=== PATIENT | male | born 1960 | race Caucasian/White ===

== ENCOUNTER 2024-08-25 09:10 | Outpatient (REF) | payer OTHER, SELFPAY ==
--- OUTSIDE RECORDS SUMMARY | 2024-08-25 11:27 | XMS_ITS | Continuity of Care Document ---
[facility] Address [address] [place] [address]- Care Team Providers Care Field Administrative Assistant Name Role Phone Dewayne Bowie MD Primary Care Physician [id number] Date(s): 06/30/24 - [facility] [address] [address]- Encounter Type: Triage Allergies, Adverse Reactions, Alerts No Known Allergies Immunizations Given and Recorded Vaccine Date Status Refusal Reason [id number] 12y+ bivalent booster vax 07/28/22 Recorded SARS-CoV-2 (COVID-19) mRNA-1273 vaccine 12/21/21 R ecorded SARS-CoV-2 (COVID-19) mRNA-1273 vaccine 06/20/21 R ecorded SARS-CoV-2 (COVID-19) mRNA-1273 vaccine 11/15/20 R ecorded SARS-CoV-2 (COVID-19) mRNA-1273 vaccine 11/08/20 R ecorded SARS-CoV-2 (COVID-19) mRNA-1273 vaccine 10/19/20 R ecorded SARS-CoV-2 (COVID-19) mRNA-1273 vaccine 10/08/20 R ecorded influenza virus vaccine, inactivated 1 07/18/20 Gi alfredo Influenza Virus Vaccine (oldterm) 06/13/19 Recorde d Afluria (oldterm) 06/13/16 Given Adacel (Tdap) (oldterm) 06/13/16 Given tetanus/diphtheria/pertussis, acel(Tdap) 06/13/16 Recorded Rabies Vacc (oldterm) 2 03/06/08 Given Diphth-Tetanus Toxoids Adsorbed(oldterm) 03/06/08 Given 1Result Comment: [facility] [place] [id number] 2Admin Note: Rabies immune globulin 6 cc injected into wound, 3cc IM LB/RB Total RIG dose 12cc Problem List Condition Confirmation Course Effective Dates Status Health Status Informant Abnormal glucose Confirmed Active Chronic low back pain Confirmed Active Circadian rhythm sleep disorder, shift work type Confirmed Active Eustachian tube dysfunction Confirmed Active Tobacco use disorder, mild, in sustained remission Confirmed Active Difficulty with CPAP use Confirmed Active Hypercholesterolemia Confirmed Active Excessive sleepiness while driving Confirmed Active Low testosterone Confirmed Active Hypothyroidism Confirmed Active IFG (impaired fasting glucose) Confirmed Active ED (erectile dysfunction) Confirmed Active Cluneal neuropathy Confirmed Active Obesity Confirmed Active ROSE MARY on CPAP Confirmed Active Osteoarthritis of knee Confirmed Active RA (rheumatoid arthritis) Confirmed Active Severe obesity (BMI 35.0-39.9) with comorbidity Confirmed Active Rheumatoid nodule Confirmed Active Vitamin d deficiency Confirmed Active Social History Social History Type Response Tobacco Other: Stopped smoki ng cigaretes about 2 years ago, he currently smokes cigars. Sex Sex Representation Male (finding) Patient Care team information Care Team Personnel Name: Dewayne Bowie MD Position: [facility] Physician - Primary Care Member Role: PCP Address: [address] [place] [address]- Telecom: Care Team Related Persons Name: CARLOS MIRANDA Insurance Providers Guarantor name: CANDICE MIRANDA Health Plan Information #: 1 Payer: [facility] Member Number: NA Policy Number: NA Group Number: NA
[2024-08-25 17:48] LABS: MANUAL DIFF FLAG NO
[2024-08-25 17:55] LABS: Basophils Absolute Auto 0.1 X10*3/uL (0.0-0.2); Basophils Percent Auto 0.7 % (0-2); Eosinophils Absolute Auto 0.1 X10*3/uL (0.0-0.4); Eosinophils Percent Auto 1.5 % (0-4); Hematocrit 47.4 % (42.0-52.0); Hemoglobin 15.9 g/dl (14.0-18.0); Imm Gran Abs Auto 0.04 X10*3/uL (0.00-0.03); Imm Gran Pct Auto 0.5 % (0.0-0.4); Lymphocytes Absolute Auto 1.4 X10*3/uL (1.2-4.9); Lymphocytes Percent Auto 17.2 % (20-40); Mean Corpuscular HGB Conc 33.5 g/dl (31.0-36.0); Mean Corpuscular Hemoglobin 30.1 pg (27.0-33.0); Mean Corpuscular Volume 89.8 fL (80.0-98.0); Mean Platelet Volume 10.7 fL (9.4-12.4); Monocytes Absolute Auto 0.6 X10*3/uL (0.1-1.2); Monocytes Percent Auto 7.1 % (2-11); Platelet Count 264 X10*3/uL (160-400); Red Blood Count 5.28 X10*6/uL (4.60-5.80); Red Cell Distribution Width 12.5 % (11.0-16.0); White Blood Count 8.2 X10*3/uL (4.8-10.8)
[2024-08-25 18:02] LABS: Rheumatoid Factor 81.5 IU/mL (<15.0)
[2024-08-25 18:05] LABS: Alanine Aminotransferase 39 U/L (0-40); Aspartate Amino Transferase 29 U/L (5-37); C Reactive Protein 0.63 mg/dL (< or = 0.50); Estimated Glomerular Filt Rate > 60
[2024-08-25 18:57] LABS: Erythrocyte Sedimentation Rate 14 MM/HR (0-15)
[2024-08-26 04:43] LABS: HBS Num1 0.87 mIU/mL (0-7.99); HBc Num1 0.44 S/CO (0.00-0.79); HBsAGNum1 0.45 S/CO (0.00-0.99); Hepatitis B Core Antibody Nonreactive (Nonreactive); Hepatitis B Surface Antigen Negative (Negative); ~HepC Num1 2.03 S/CO (0.00-0.79); ~Hepatitis B Surface Antibody NONREACTIVE (Nonreactive); ~Hepatitis C Antibody Reactive (Nonreactive)
[2024-08-29 04:08] LABS: TS Negative Control Passed; TS Panel A 0; TS Panel B 0; TS Positive Control Passed; TSpotTB Negative (Negative)
[2024-08-30 13:58] LABS: Cyclic Citrullinated Peptide <16 UNITS
== END 2024-08-25 09:11 | disposition home or self-care (01) ==
LOC: HO.HKASLDS 09:10
PROVIDERS: Visit Provider Internal Medicine Rheumatology
DX: M06.09 Rheumatoid arthritis without rheumatoid factor, multiple sites (principal); Z79.60 Long term (current) use of unspecified immunomodulators and immunosuppressants; Z79.899 Other long term (current) drug therapy
CPT/HCPCS: 36415; 82565; 84450; 84460; 85025; 85652; 86140; 86200; 86431; 86481; 86704; 86706; 86803; 87340

== ENCOUNTER 2024-08-25 09:10 | Outpatient (AMB) | payer OTHER, SELFPAY ==
[2024-08-25 09:11] VITALS: BP 130/78; PULSE 68; O2SAT 97; BMI 41.1
--- NOTE | 2024-08-25 09:11 | A.OFFVIS_ITS ---
Vital Signs 08/25/24 09:11 Height 5 ft 6 in Weight 254 lb 8 oz BMI 41.1 BP 130/78 Blood Pressure Location Lt brachial Position Sitting Pulse 68 Pulse Source Pulse Oximeter Pulse Oximetry (%) 97 Oxygen Delivery Method Room Air Intake Visit Reasons: RA Intake Note: Patient presents follow up on Rheumatoid arthritis. Patient states he has an issue with diclofenac, insurance won't cover it anymore. Allergies No Known Allergies Allergy (Verified 08/25/24 09:15) HPI HPI RA: Details: Denies joint swelling. Last visit he had lower extremity edema. He has been wearing socks that he folds over to prevent pain from compression. Improvement by lower extremity edema still present. His main pain is coming from his lower back and knees. He continues to have right radicular symptoms. He has limited mobility. He has gone to physical therapy and does at least 30 minutes of exercises daily. In the past he has seen pain management for consideration of L-spine cortisone injection but has not pursued it due to risks involve and high co-pay of 100 dollars per procedure. At this time he is unable to afford multiple copays. He has history of L-spine surgery. He currently takes Celebrex 200 mg daily prescribed by PCP. He was using diclofenac gel on his knees with benefit. He has had to purchase it [id number] because he has no refills. [facility] Medical History (Updated 08/25/24 @ 09:54 by Ricky Garcia MD) Deviated septum Right shoulder injury Surgical History (Updated 08/25/24 @ 09:19 by Sabiha Guillermo CMA) H/O shoulder surgery History of back surgery H/O hernia repair Family History (Updated 08/25/24 @ 09:20 by Sabiha Guillermo CMA) Brother Colon cancer Social History (Updated 08/25/24 @ 09:20 by Sabiha Guillermo CMA) Alcohol intake: current Alcohol intake frequency: a few times a week Alcohol type: beer Patient Tobacco Use Status: Former Tobacco user Review of Systems Const All systems reviewed & are unremarkable except as noted in HPI and below Physical Exam Vital Signs: Last Vital Signs Pulse 68 08/25/24 09:11 BP 130/78 08/25/24 09:11 Pulse Ox 97 08/25/24 09:11 Oxygen Delivery Method Room Air 08/25/24 09:11 BMI result Body Mass Index 41.1 Const Other: General: Comfortable CVS: RRR Respiratory: clear to auscultation bilaterally. Good respiratory effort Skin: No lesions seen MSK: No tenderness of any joints. No synovitis. Good range of motion of upper extremities. Limited full external rotation of hips and flexion of knees 90 degrees. Assessment & Plan Assessment & Plan (1) Rheumatoid arthritis: Comment: History of rheumatoid arthritis diagnosed in . 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 He remains on remission on hydroxychloroquine restarted 09/2021 Code(s): M06.9 - Rheumatoid arthritis, unspecified Category: Medical Qualifiers: Rheumatoid arthritis location: multiple sites Rheumatoid factor presence: unspecified presence Qualified Code(s): M06.9 - Rheumatoid arthritis, unspecified Plan: Continue hydroxychloroquine 400 mg daily. Requesting eye exam for hydroxychloroquine surveillance said he had last year Labs for drug monitoring on high-risk medication due Return to clinic in 3 months I will be prescribing diclofenac gel 1% applied to knees q.i.d. as needed for pain relief I recommend that he follow-up with PCP for further management of chronic back pain with right radiculopathy and neuropathy in feet. Consider increasing frequency of Celebrex to 200 mg twice a day versus changing NSAID and considering Lyrica (previously tried gabapentin but patient reports it was in effective). Encouraged weight loss. I recommend that he follow up with PCP for consideration of medical management of weight loss. (2) Other terminal supervisor (current) drug therapy: Code(s): Z79.899 - Other terminal supervisor (current) drug therapy Category: Medical Plan: See above Orders: Orders Alanine Aminotransferase Today Z79.60 - rat exterminator (current) use of unspecified immunomodulators and immunosuppressants T Spot TB Today M06.9 - Rheumatoid arthritis, unspecified, Z79.899 - Other terminal supervisor (current) drug therapy Cyclic Citrullinated Peptide Today M06.9 - Rheumatoid arthritis, unspecified, Z79.899 - Other penitentiary (current) drug therapy Erythrocyte Sedimentation Rate Today M06.9 - Rheumatoid arthritis, unspecified, Z79.899 - Other terminal supervisor (current) drug therapy C Reactive Protein Today M06.9 - Rheumatoid arthritis, unspecified, Z79.899 - Other penitentiary (current) drug therapy Aspartate Amino Transferase Today Z79.60 - FDC (current) use of unspecified immunomodulators and immunosuppressants Complete Blood Count Auto Diff Today Z79.60 - FDC (current) use of unspecified immunomodulators and immunosuppressants Creatinine Today Z79.60 - rat exterminator (current) use of unspecified immunomodulators and immunosuppressants Hepatitis B,C Profile Today M06.9 - Rheumatoid arthritis, unspecified, Z79.899 - Other terminal supervisor (current) drug therapy Rheumatoid Factor Today M06.9 - Rheumatoid arthritis, unspecified, Z79.899 - Other terminal supervisor (current) drug therapy Medications: New diclofenac sodium 1% (Arthritis Pain (diclofenac)) apply to affected area every 4-6 hours as needed 4 grams topical QID 100 grams 11RF Coding Level of Care Code Est Pt Level 4 (59220) Complex EM visit Add On G2211 Diagnoses Rheumatoid arthritis involving multiple sites, unspecified whether rheumatoid factor present M06.9 Rheumatoid arthritis location: multiple sites Rheumatoid factor presence: unspecified presence Other terminal supervisor (current) drug therapy Z79.899
== END 2024-08-25 09:52 | disposition home or self-care (01) ==
PROVIDERS: Visit Provider Internal Medicine Rheumatology
DX: M06.9 Rheumatoid arthritis, unspecified (principal); Z79.899 Other long term (current) drug therapy
CPT/HCPCS: 99214

== ENCOUNTER 2024-09-14 11:08 | Outpatient (REF) | payer OTHER, SELFPAY ==
--- OUTSIDE RECORDS SUMMARY | 2024-09-14 12:30 | XMS_ITS | Clinical Summary ---
Author Organization [facility] lin Address [address] [place] [address] Care Team Providers Care Identification Clerk Name Role Phone Unavailable Primary Care Provider Unavailabl e Social History Tobacco Use Types Packs/Day Years Used Date Smoking Tobacco: Never Assessed Sex and Gender Information Value Date Recorded Sex Assigned at Not on file Legal Sex Male 10:04 AM EST Gender Identity Not on file Sexual Orientation Not on file Plan of Treatment Health Maintenance Due Date Last Done Comments Colorectal Cancer: COLONOSCO PY Screening every 10 yrs (or Modifier) 1962 Depression: Screening Annual ly using PHQ-2/9 in Adults 18 yrs or above (or HM Modifier)([facility]) 1980 Hepatitis C Virus Infection in Adolescents and Adults: Screening (or Modifier) ([facility]) 1980 SDOH Screening Reminder: Annually for all adults ([facility]) 1980 Tobacco Smoking Cessation: i n Adults excluding Women: Behavioral and Pharmacotherapy Interventions ([facility]) 1980 Lipid Screening: Every 5 yrs for Men aged 35+ (or HM Modifier) ([facility]) 1998 Colorectal Cancer Screening 45 -75 Yrs (or HM Modifier) 2007 Colorectal Cancer: FLEXIBLE SIGMOIDOSCOPY Screening every 5 yrs 2007 Colorectal Cancer: Fecal Immunochemical Test (FIT) Annually [facility] 2007 Colorectal Cancer: High-sensitivity gFOBT Screening Annually [facility] 2007 Colorectal Cancer: Stool Cologuard Screening every 3 yrs 2007 Colorectal Cancer:CT Colonography Screening every 5 yrs 2007 Zoster/Shingles Vaccine Seri es Screening: Adults aged 18+ yrs (or HM Modifiers)([facility]) (1 of 2) 2012 Flu Vaccination: Yearly for ages 18mos through 64 years (or Modifier)([facility]) 03/10/2024 COVID-19 Vaccine Screening: Initial Series and Booster Status ([facility]) (1 - 2023-25 season) 2024 DTaP/Tdap/Td Vaccines ([facility]) (2 - Td or Tdap) 06/13/2026 06/13/2016, 03/06/2008 RSV Vaccines (1 - 1-dose 75+ series) 2037 Pneumococcal Vaccination Screening: Pts 0-19 & 19-64 yrs of age ([facility]) Aged Out No longer eligible based on patient's age to complete this topic Medical Devices Not on file Insurance [facility]
--- OUTSIDE RECORDS SUMMARY | 2024-09-14 12:30 | XMS_ITS | Clinical Summary ---
Author Organization [facility] Address [address] [place] [address] Care Team Providers Care Supervisor Mail Carriers Name Role Phone Unavailable Primary Care Provider Unavailabl e Social History Tobacco Use Types Packs/Day Years Used Date Smoking Tobacco: Never Assessed Sex and Gender Information Value Date Recorded Sex Assigned at Not on file Legal Sex Male 6:38 PM EDT Gender Identity Not on file Sexual Orientation Not on file Plan of Treatment Health Maintenance Due Date Last Done Comments Hepatitis C Screening 1962 DTaP/Tdap/Td (1 - Tdap) 1980 Pneumococcal 50+ years (1 of 1 - PCV) 2012 Zoster (Shingrix) (1 of 2) 2012 COVID-19 Vaccine ( - 2023-2 5 season) 2024 Influenza (#1) 2024 RSV (1 - 1-dose 75+ series) 2037 HPV Vaccine Aged Out No longer eligi ble based on patient's age to complete this topic Hep A Aged Out No longer eligi ble based on patient's age to complete this topic Hep B Aged Out No longer eligi ble based on patient's age to complete this topic Hib Aged Out No longer eligi ble based on patient's age to complete this topic Meningococcal ACWY Aged Out No longer eligible based on patient's age to complete this topic Zoster (Zostavax) Discontinued
--- OUTSIDE RECORDS SUMMARY | 2024-09-14 12:30 | XMS_ITS | Continuity of Care Document ---
Author Organization [facility] Address [address] [place] [address]- Care Team Providers Care Couples Therapist Name Role Phone Dewayne Bowie MD Primary Care Physician Encounter [facility] NBR [id number] Date(s): 08/30/24 - 08/30/[address] [address] Discharge Disposition: A-D/C Home Attending Physician: Geena Dangelo DO Admitting Physician: Geena Dangelo DO Referring Physician: Geena Dangelo DO Encounter Type: Disch [facility] Allergies, Adverse Reactions, Alerts No Known Allergies Immunizations Given and Recorded Vaccine Date Status Refusal Reason [id number] 12y+ bivalent booster vax 07/28/22 Recorded SARS-CoV-2 [...] Diphth-Tetanus Toxoids Adsorbed(oldterm) 03/06/08 Given 1Result Comment: [facility] [place] [id number] 2Admin Note: Rabies immune globulin 6 [...] Confirmed Active Vitamin d deficiency Confirmed Active Vital Signs Most recent to oldest [Reference Range]: 1 2 3 Height 168 cm (08/30/24 8:32 AM) Oxygen Saturation [94-100 %] 95 % (08/30/24 10:04 AM) 95 % (08/30/24 10:02 AM) 94 % (08/30/24 9:51 AM) Pulse Rate [55-90 bpm] 71 bpm (08/30/24 8:32 AM) Blood Pressure [90-138/55-84 mm Hg] 106/59mm Hg (08/30/24 10:02 AM) 97/58mm Hg (08/30/24 9:51 AM) 95/69mm Hg (08/30/24 9:45 AM) Respiratory Rate [16-30 br/min] 11 br/min *L* (08/30/24 10:04 AM) 18 br/min (08/30/24 10:02 AM) 20 br/min (08/30/24 9:51 AM) Temperature [96.8-100.4 DegF] 98.6 DegF (08/30/24 8:32 AM) Mode of Delivery (Oxygen) Room air (08/30/24 9:45 AM) Room air (08/30/24 8:32 AM) Blood pressure sites Arm, left (08/30/24 9:45 AM) Arm, left (08/30/24 8:32 AM) Temperature Route Temporal (08/30/24 8:32 AM) Dry Weight 114.3 kg (08/30/24 8:32 AM) Dry Weight Obtained Via Standing scale (08/30/24 8:32 AM) Social History Social History Type Response Tobacco Other: Stopped smoki ng cigaretes about 2 years ago, he currently smokes cigars. Sex Sex Representation Male (finding) Patient Care team information Care Team Personnel Name: Dewayne Bowie MD Position: [facility] Physician - Primary Care Member Role: PCP Address: [address] [place] [address] Telecom: Care Team Related Persons Name: CARLOS MIRANDA Insurance Providers Guarantor name: CANDICE MIRANDA Health Plan Information #: 1 Payer: [facility] Member Number: [id number] Policy Number: NA Group Number: [id number] Health Plan Information #: 2 Payer: [facility] Member Number: [id number] Policy Number: NA Group Number: NA
[2024-09-16 20:53] LABS: HCV Log PCR <1.18 NOT DETECTED Log IU/mL (NOT DETECTED); HepC Viral Load <15 NOT DETECTED IU/mL (NOT DETECTED)
== END 2024-09-14 11:09 | disposition home or self-care (01) ==
LOC: HO.HKASLDS 11:08
PROVIDERS: Visit Provider Internal Medicine Rheumatology
DX: M06.9 Rheumatoid arthritis, unspecified (principal); Z79.899 Other long term (current) drug therapy
CPT/HCPCS: 36415; 87522

== ENCOUNTER 2024-12-07 10:52 | Outpatient (AMB) | payer OTHER, SELFPAY ==
[2024-12-07 10:47] VITALS: BP 100/90; PULSE 90; O2SAT 96; BMI 40.5
--- NOTE | 2024-12-07 10:47 | A.OFFVIS_ITS ---
Vital Signs 12/07/24 10:47 Height 5 ft 6 in Weight 250 lb 14.177 oz BMI 40.5 BP 100/90 H Blood Pressure Location Rt brachial Position Sitting Pulse 90 Pulse Source Pulse Oximeter Pulse Oximetry (%) 96 Oxygen Delivery Method Room Air Intake Visit Reasons: Follow up 3mo Intake Note: Patient presents follow up on Rheumatoid arthritis. Cardiologist Required: No Accompanied by: Self / Same As Patient Allergies No Known Allergies Allergy (Verified 12/07/24 10:47) HPI HPI Follow up 3mo: Details: He is having knee pain with activity. He is not able to walk long distances. He is requesting placard to park closer to stores. He is using Celebrex a few times a week. He does not like to take medications. He is using diclofenac gel prescribed and OTC because he does not have enough from the prescription a few times a day without benefit. No morning stiffness. No joint swelling. [facility] Medical History Deviated septum Right shoulder injury Surgical History H/O shoulder surgery History of back surgery H/O hernia repair Family History Brother Colon cancer Social History Alcohol intake: current Alcohol intake frequency: a few times a week Alcohol type: beer Patient Tobacco Use Status: Former Tobacco user Review of Systems Const All systems reviewed & are unremarkable except as noted in HPI and below Physical Exam Vital Signs: Last Vital Signs Pulse 90 12/07/24 10:47 BP 100/90 H 12/07/24 10:47 Pulse Ox 96 12/07/24 10:47 Oxygen Delivery Method Room Air 12/07/24 10:47 BMI result Body Mass Index 40.5 Const Other: General: Comfortable CVS: RRR Respiratory: clear to auscultation bilaterally. Good respiratory effort Skin: No lesions seen MSK: No tenderness of any joints. No synovitis. Good range of motion of upper extremities. Limited full external rotation of hips and flexion of knees 90 degrees. Assessment & Plan Assessment & Plan (1) Rheumatoid arthritis: Comment: In remission on hydroxychloroquine. Previous lab from August reveal positive hepatitis-C antibody with negative viral load indicating past hepatitis-C infection. Discussed with patient. I answered his questions to his satisfaction. Rheumatology history: History of rheumatoid arthritis diagnosed in . Treated initially with hydroxychloroquine and Enbrel until 2019 when exhibit specialist left the practice. He remains on remission on hydroxychloroquine restarted 09/2021 Code(s): M06.9 - Rheumatoid arthritis, unspecified Category: Medical Qualifiers: Rheumatoid arthritis location: multiple sites Rheumatoid factor presence: unspecified presence Qualified Code(s): M06.9 - Rheumatoid arthritis, unspecified Plan: Continue hydroxychloroquine 400 mg daily. Requesting eye exam for hydroxychloroquine surveillance this year Labs for drug monitoring on high-risk medication due Return to clinic in 3 months (2) Other joint terminal attack controller (current) drug therapy: Code(s): Z79.899 - Other fci (current) drug therapy Category: Medical Plan: See above (3) Osteoarthritis of right knee: Comment: Uncontrolled pain with current regimen. Code(s): M17.11 - Unilateral primary osteoarthritis, right knee Category: Medical Plan: I recommend that he take Celebrex 200 mg daily. He does not like to take pills. X-ray right knee ordered [facility]ing [facility] He will be scheduled for right knee cortisone injection next week Orders: Orders Aspartate Amino Transferase Today Z79.60 - long-term (current) use of unspecified immunomodulators and immunosuppressants Creatinine Today Z79.60 - termite exterminator helper (current) use of unspecified immunomodulators and immunosuppressants Erythrocyte Sedimentation Rate Today Z79.899 - Other fci (current) drug therapy C Reactive Protein Today Z79.899 - Other joint terminal attack controller (current) drug therapy XR knee RT 2V Today M17.0 - Bilateral primary osteoarthritis of knee Alanine Aminotransferase Today Z79.60 - long-term (current) use of unspecified immunomodulators and immunosuppressants Complete Blood Count Auto Diff Today Z79.60 - termite exterminator helper (current) use of unspecified immunomodulators and immunosuppressants Medications: New celecoxib (Celebrex) 200 mg PO DAILY 30 caps 2RF Changed From hydroxychloroquine 400 mg PO DAILY To hydroxychloroquine Replace previous rx 400 mg (2 x 200 mg) PO DAILY 60 tabs 2RF Refilled diclofenac sodium 1% (Arthritis Pain (diclofenac)) apply to affected area every 4-6 hours as needed 4 grams topical QID 300 grams 11RF Coding Level of Care Code Est Pt Level 4 (73064) Complex EM visit Add On G2211 Diagnoses Rheumatoid arthritis involving multiple sites, unspecified whether rheumatoid factor present M06.9 Rheumatoid arthritis location: multiple sites Rheumatoid factor presence: unspecified presence Other joint terminal attack controller (current) drug therapy Z79.899 Osteoarthritis of right knee M17.11
--- OUTSIDE RECORDS SUMMARY | 2024-12-07 12:18 | XMS_ITS | Clinical Summary ---
Author Organization [facility] [employer] [facility] lin Address [address] [place] [address] Care Team Providers Care Hollow Ware Maker Name Role Phone Unavailable Primary Care Provider [...] 18 yrs or above (or HM Modifier)([facility]) 1980 Hepatitis C Virus Infection in Adolescents and Adults: Screening (or Modifier) ([facility]) 1980 SDOH Screening Reminder: Brianna gooden for all adults ([facility]) 1980 Tobacco Smoking Cessation: i n Adults excluding Women: Behavioral and Pharmacotherapy Interventions ([facility]) 1980 Lipid Screening: Every 5 yrs for Men aged 35+ (or HM Modifier) ([facility]) 1998 Colorectal Cancer Screening 45 -75 Yrs (or HM Modifier) 2007 Colorectal Cancer: FLEXIBLE SIGMOIDOSCOPY Screening every 5 yrs 2007 Colorectal Cancer: Fecal Imm unochemical Test (FIT) Annually [facility] 2007 Colorectal Cancer: High-sens itivity gFOBT Screening Annually [facility] 2007 Colorectal Cancer: Stool Col oguard Screening every 3 yrs 2007 Colorectal Cancer:CT Colonog rosemary Screening every 5 yrs 2007 Pneumococcal Vaccination Scr eening: Patients 50+ yrs of age ([facility]) (1 of 1 - PCV) 2012 Zoster/Shingles Vaccine Seri es Screening: Adults aged 18+ yrs (or HM Modifiers)([facility]) (1 of 2) 2012 COVID-19 Vaccine Screening: Initial Series and Booster Status ([facility]) ( - 2023-25 season) 2024 Flu Vaccination: Yearly for ages 18mos through 64 years (or Modifier)([facility] ) 03/10/2025 DTaP/Tdap/Td Vaccines ([facility]) (2 - Td or Tdap) 06/13/2026 06/13/2016, 03/06/2008 RSV Vaccines (1 - 1-dose 75+ series) 2037 Medical Devices Not on file Insurance [facility]
--- OUTSIDE RECORDS SUMMARY | 2024-12-07 12:18 | XMS_ITS | Clinical Summary ---
Author Organization [facility] Address [address] [place] [address] Care Team Providers Care Foot Orthopedist Name Role Phone Unavailable Primary Care Provider [...]
== END 2024-12-07 11:35 | disposition home or self-care (01) ==
LOC: HO.RHES 10:53
PROVIDERS: PCP Internal Medicine Rheumatology; Visit Provider Internal Medicine Rheumatology
DX: M06.9 Rheumatoid arthritis, unspecified (principal); Z79.899 Other long term (current) drug therapy; M17.11 Unilateral primary osteoarthritis, right knee
CPT/HCPCS: 99214

== ENCOUNTER 2024-12-07 10:52 | Outpatient (REF) | payer OTHER, SELFPAY ==
--- OUTSIDE RECORDS SUMMARY | 2024-12-07 13:13 | XMS_ITS | Clinical Summary ---
Author Organization [facility] Address [address] [place] [address] Care Team Providers Care Rn Security Name Role Phone Unavailable Primary Care Provider [...]
--- OUTSIDE RECORDS SUMMARY | 2024-12-07 13:13 | XMS_ITS | Clinical Summary ---
Author Organization [facility] lin Address [address] [place] [address] Care Team Providers Care Oracle Financials Developer Name Role Phone Unavailable Primary Care Provider [...] Adults 18 yrs or above (or HM Modifier)([facility]) 1980 Hepatitis C Virus Infection in Adolescents and Adults: Screening (or Modifier) ([facility]) 1980 SDOH Screening Reminder: Brianna gooden for all adults ([facility]) 1980 Tobacco Smoking Cessation: i n Adults excluding Women: Behavioral and Pharmacotherapy Interventions ([facility]) 1980 Lipid Screening: Every 5 yrs for Men aged 35+ (or HM Modifier) ([facility]) 1998 Colorectal Cancer Screening 45 -75 Yrs (or HM Modifier) 2007 Colorectal Cancer: FLEXIBLE SIGMOIDOSCOPY Screening every 5 yrs 2007 Colorectal Cancer: Fecal Imm unochemical Test (FIT) Annually [facility] 2007 Colorectal Cancer: High-sens itivity gFOBT Screening Annually [facility] 2007 Colorectal Cancer: Stool Col oguard Screening every 3 yrs 2007 Colorectal Cancer:CT Colonog rosemary Screening every 5 yrs 2007 Pneumococcal Vaccination Scr eening: Patients 50+ yrs of age ([facility]) (1 of 1 - PCV) 2012 Zoster/Shingles Vaccine Seri es Screening: Adults aged 18+ yrs (or HM Modifiers)([facility]) (1 of 2) 2012 COVID-19 Vaccine Screening: Initial Series and Booster Status ([facility]) ( - 2023-25 season) 2024 Flu Vaccination: Yearly for ages 18mos through 64 years (or Modifier)([facility] ) 03/10/2025 DTaP/Tdap/Td Vaccines ([facility]) (2 - Td or Tdap) 06/13/2026 06/13/2016, 03/06/2008 RSV Vaccines (1 - 1-dose 75+ series) 2037 Medical Devices Not on file Insurance [facility]
[2024-12-07 18:01] LABS: MANUAL DIFF FLAG NO
[2024-12-07 18:13] LABS: Basophils Percent Auto 0.5 % (0-2); Eosinophils Absolute Auto 0.1 X10*3/uL (0.0-0.4); Eosinophils Percent Auto 1.3 % (0-4); Hematocrit 46.3 % (42.0-52.0); Hemoglobin 15.6 g/dl (14.0-18.0); Imm Gran Abs Auto 0.05 X10*3/uL (0.00-0.03); Imm Gran Pct Auto 0.6 % (0.0-0.4); Lymphocytes Absolute Auto 1.5 X10*3/uL (1.2-4.9); Lymphocytes Percent Auto 16.9 % (20-40); Mean Corpuscular HGB Conc 33.7 g/dl (31.0-36.0); Mean Corpuscular Hemoglobin 30.4 pg (27.0-33.0); Mean Corpuscular Volume 90.1 fL (80.0-98.0); Mean Platelet Volume 10.3 fL (9.4-12.4); Monocytes Absolute Auto 0.7 X10*3/uL (0.1-1.2); Monocytes Percent Auto 7.9 % (2-11); Neutrophils Absolute Auto 6.3 x10*3/uL (2.0-8.3); Neutrophils Percent Auto 72.8 % (45-73); Platelet Count 261 X10*3/uL (160-400); Red Blood Count 5.14 X10*6/uL (4.60-5.80); Red Cell Distribution Width 12.9 % (11.0-16.0); White Blood Count 8.6 X10*3/uL (4.8-10.8)
[2024-12-07 18:25] LABS: Alanine Aminotransferase 52 U/L (0-40); Aspartate Amino Transferase 35 U/L (5-37); C Reactive Protein 0.54 mg/dL (< or = 0.50); Estimated Glomerular Filt Rate > 60
[2024-12-07 18:53] LABS: Erythrocyte Sedimentation Rate 11 MM/HR (0-15)
== END 2024-12-07 10:53 | disposition home or self-care (01) ==
LOC: HO.HKASLDS 10:52
PROVIDERS: PCP Internal Medicine Rheumatology; Visit Provider Internal Medicine Rheumatology
DX: Z79.899 Other long term (current) drug therapy (principal); Z79.60 Long term (current) use of unspecified immunomodulators and immunosuppressants
CPT/HCPCS: 36415; 82565; 84450; 84460; 85025; 85652; 86140

== ENCOUNTER 2024-12-08 11:29 | Outpatient (REF) | payer OTHER, SELFPAY ==
--- NOTE | ~2024-12-08 | XR_ITS ---
EXAMINATION: XR KNEE, RIGHT CLINICAL INFORMATION: M17.0 - Bilateral primary osteoarthritis of knee COMPARISON: None available. TECHNIQUE: Two views of the right knee. FINDINGS: No fracture, dislocation, or suspicious bone lesion. Tricompartmental osteoarthritis, most significant medial compartment, with moderate joint space narrowing, mild subchondral sclerosis and marginal osteophytic spurs. There is mild spurring of the tibial spines. There is a low-lying patella noted. No significant joint effusion present. No soft tissue abnormality. XR/XR knee RT 2V IMPRESSION: 1. No acute bony abnormality. 2. Tricompartmental osteoarthrosis, moderate in the medial compartment. 3. No joint effusion. Electronically signed by: Homero Barker MD 12/09/2024 10:06 AM EDT
== END 2024-12-08 11:30 | disposition home or self-care (01) ==
LOC: HO.HMGCX 11:29
PROVIDERS: Visit Provider Internal Medicine Rheumatology
DX: M17.0 Bilateral primary osteoarthritis of knee (principal)
CPT/HCPCS: 73560

== ENCOUNTER → 2024-12-08 11:32 | Outpatient (BNV) | payer OTHER, SELFPAY | PROVIDERS: Visit Provider Radiology Diagnostic Radiology | DX: M17.0 Bilateral primary osteoarthritis of knee (principal) | CPT/HCPCS: 73560 ==

== ENCOUNTER 2024-12-13 11:53 | Outpatient (AMB) | payer OTHER, SELFPAY ==
--- NOTE | 2024-12-13 11:56 | MHC.OFFVIS ---
Vital Signs 12/13/24 11:58 Height 5 ft 6 in Weight 252 lb 13.923 oz BMI 40.8 BP 110/90 H Blood Pressure Location Lt brachial Position Sitting Pulse 73 Pulse Oximetry (%) 97 Oxygen Delivery Method Room Air Intake Visit Reasons: Right knee injection/ Per mD Intake Note: PT PRESENTS TODAY FOR A RIGHT KNEE INJECTION Allergies No Known Allergies Allergy (Verified 12/07/24 10:47) HPI HPI Right knee injection/ Per mD: Details: He continues to have right knee pain. No new symptoms. [facility] Medical History Deviated septum Right shoulder injury Surgical History H/O shoulder surgery History of back surgery H/O hernia repair Family History Brother Colon cancer Social History Alcohol intake: current Alcohol intake frequency: a few times a week Alcohol type: beer Patient Tobacco Use Status: Former Tobacco user Review of Systems Const All systems reviewed & are unremarkable except as noted in HPI and below Physical Exam Vital Signs: Last Vital Signs Pulse 73 12/13/24 11:58 BP 110/90 H 12/13/24 11:58 Pulse Ox 97 12/13/24 11:58 Oxygen Delivery Method Room Air 12/13/24 11:58 BMI result Body Mass Index 40.8 Const Other: General: Comfortable Skin: No lesions seen MSK: Right knee joint line tenderness on palpation. No effusion. Office Procedures AMB Joint Injection/Aspiration Joint Injection/Aspiration Details: Right knee joint Prep: site was prepped using aseptic technique Injected: 40 mg of, Kenalog, with 1 mL of and 1% plain lidocaine Procedure: The patient tolerated the procedure well. Postprocedure protocol was discussed with patient. Coding 49012 - Large joint Procedure code (CPT) selection complete Office Meds lidocaine (PF) 10 mg/mL (1 %) injection solution Performing Provider: Ricky Garcia MD [place] [facility] Administered by: Ricky Garcia MD on 12/13/24 12:28 Dose Route Admin Location Dispensed Lot Number Expiration Date [facility] Apartment Maintenance 10 mg Infiltration 2 mL [id number] [employer] Kenalog 40 mg/mL suspension for injection Performing Provider: Ricky Garcia MD Performing [place] [facility] [place] Administered by: Ricky Garcia MD on 12/13/24 12:28 Dose Route Admin Location Dispensed Lot Number Expiration Date [facility] Apartment Maintenance 40 mg intra-articular 1 mL [place] [id number] MARCO A RICHARDSON PHAR Assessment & Plan Assessment & Plan (1) Osteoarthritis of right knee: Comment: Uncontrolled pain with current regimen. X-ray right knee reveals moderate osteoarthritis. Code(s): M17.11 - Unilateral primary osteoarthritis, right knee Category: Medical Qualifiers: Osteoarthritis type: primary Qualified Code(s): M17.11 - Unilateral primary osteoarthritis, right knee Plan: Patient received right knee cortisone injection Return to clinic in 3 months (2) Transaminitis: Comment: He drinks occasional alcohol Code(s): R74.01 - Elevation of levels of liver transaminase levels Category: Medical Plan: Avoid alcohol Liver panel ordered for him to check in 1 month Return to clinic in 3 months Orders: Orders AMB Joint Injection/Aspiration Today M17.11 - Unilateral primary osteoarthritis, right knee Medications: New lidocaine (PF) 10 mg Infiltration ONCE 1 mL 0RF M17.11 - Unilateral primary osteoarthritis, right knee Kenalog (triamcinolone acetonide) 40 mg intra-articular ONCE 1 mL 0RF NS M17.11 - Unilateral primary osteoarthritis, right knee Coding Level of Care Code Est Pt Level 3 (45910) Complex EM visit Add On G2211 Diagnoses Primary osteoarthritis of right knee M17.11 Osteoarthritis type: primary Transaminitis R74.01 CPT Codes Coding - 31210 Large joint: 21365 - Large joint ([id number])
[2024-12-13 11:58] VITALS: BP 110/90; PULSE 73; O2SAT 97; BMI 40.8
--- OUTSIDE RECORDS SUMMARY | 2024-12-13 13:29 | XMS_ITS | Encounter Summary ---
Author Organization [facility] Address [address] [place] [address] Care Team Providers Care Abattoir Supervisor Name Role Phone Refugio Mosquera Primary Care Provider Kiannaa Klaudia Salazar MD Primary Care Provider Un available Encounter Details Date Type Department Care Team Description 11/30/2007 [facility] Medical Records [address] [place] [address] Abstract, Provider Social History Tobacco Use Types Packs/Day Years Used Date Smoking Tobacco: Every Day Cigars Smokeless Tobacco: Never Alcohol Use Standard Drinks/Week Comments Yes 0 (1 standard drink = 0.6 oz pur e alcohol) Sex Assigned at Date Recorded Not on file documented as of this encounter Plan of Treatment Not on file documented as of this encounter Visit Diagnoses Not on filedocumented in this encounter Care Teams Abattoir Supervisor Relationship Specialty Start Date End Date Refugio Mosquera PCP - General Internal Medicine 11/14/16 04/27/17 Klaudia Mederos MD PCP - General Internal Medicine 04/28/17 documented as of this encounter
--- OUTSIDE RECORDS SUMMARY | 2024-12-13 13:29 | XMS_ITS | Encounter Summary ---
Author Organization [facility] Address [address] [place] [address] Care Team Providers Care Financial Advocate Name Role Phone Klaudia Mederos MD Primary Care Provider Un available Encounter Details Date Type Department Care Team Description 09/17/2018 Receiving Checker Report Medical Records [address] [place] [address] Franklin Robin [address] [place] [address] Social History Tobacco Use Types Packs/Day Years Used Date Smoking Tobacco: Every Day Cigarettes 30 Smokeless Tobacco: Never Comments:approx 15 cigarette s daily Alcohol Use Standard Drinks/Week Comments Yes 0 (1 standard drink = 0.6 oz pur e alcohol) Sex Assigned at Date Recorded Not on file documented as of this encounter Plan of Treatment Not on file documented as of this encounter Visit Diagnoses Not on filedocumented in this encounter Care Teams Financial Advocate Relationship Specialty Start Date End Date Klaudia Mederos MD PCP - General Internal Medicine 04/28/17 documented as of this encounter
--- OUTSIDE RECORDS SUMMARY | 2024-12-13 13:29 | XMS_ITS | Encounter Summary ---
Author Organization [facility] Address [address] [place] [address] Care Team Providers Care Canvas Baster Name Role Phone Klaudia Mederos MD Primary Care Provider Un available Encounter Details Date Type Department Care Team Description 02/02/2019 Soft Work Wrapper Layer And Examiner Report Medical Records [address] [place] [address] Robin Reid [address] [place] [address] Social History Tobacco Use Types Packs/Day Years [...] on filedocumented in this encounter Care Teams Canvas Baster Relationship Specialty Start Date End Date Klaudia Mederos MD PCP - General Internal Medicine 04/28/17 documented as of this encounter
--- OUTSIDE RECORDS SUMMARY | 2024-12-13 13:29 | XMS_ITS | Encounter Summary ---
Author Organization [facility] Address [address] [place] [address] Care Team Providers Care Sewing Demonstrator Name Role Phone Refugio Mosquera Primary Care Provider Kiannaa Klaudia Salazar MD Primary Care Provider Un available Encounter Details Date Type Department Care Team Description 04/14/2017 Release of Information Medical Records [address] [place] [address] Abstract, Provider Social History Tobacco Use Types Packs/Day Years Used Date Smoking Tobacco: Every Day Cigarettes 0.5 30 Comments:14 cigs daily Alcohol Use Standard Drinks/Week Comments Yes 0 (1 standard drink = 0.6 oz pur e alcohol) Sex Assigned at Date Recorded Not on file documented as of this encounter Plan of Treatment Not on file documented as of this encounter Visit Diagnoses Not on filedocumented in this encounter Care Teams Sewing Demonstrator Relationship Specialty Start Date End Date Refugio Mosquera PCP - General Internal Medicine 11/14/16 04/27/17 Klaudia Mederos MD PCP - General Internal Medicine 04/28/17 documented as of this encounter
--- OUTSIDE RECORDS SUMMARY | 2024-12-13 13:29 | XMS_ITS | Encounter Summary ---
Author Organization [facility] Address [address] [place] [address] Care Team Providers Care Construction Plumber Name Role Phone Klaudia Mederos MD Primary Care Provider Un available Encounter Details Date Type Department Care Team Description 07/20/2017 Orders Only Adult Medicine [address] [address] Klaudia Mederos MD Preoperative examination; Screening for deficiency anemia Social History Tobacco Use Types Packs/Day Years Used Date Smoking Tobacco: Every Day Cigarettes 1 30 Smokeless Tobacco: Never Alcohol Use Standard Drinks/Week Comments Yes 0 (1 standard drink = 0.6 oz pur e alcohol) Sex Assigned at Date Recorded Not on file documented as of this encounter Plan of Treatment Not on file documented as of this encounter Visit Diagnoses Diagnosis Preoperative examination Preoperative examination, unspecified Screening for deficiency anemia Screening for other and unspecified deficiency anemia documented in this encounter Care Teams Construction Plumber Relationship Specialty Start Date End Date Klaudia Mederos MD PCP - General Internal Medicine 04/28/17 documented as of this encounter
--- OUTSIDE RECORDS SUMMARY | 2024-12-13 13:29 | XMS_ITS | Clinical Summary ---
Author Organization [facility] Address [address] [place] [address] Care Team Providers Care Family Physician Name Role Phone Unavailable Primary Care Provider [...] ( - 2023-2 5 season) 2024 Influenza (Season Ended) 2025 RSV (1 - 1-dose 75+ series) 2037 [...]
--- OUTSIDE RECORDS SUMMARY | 2024-12-13 13:29 | XMS_ITS | Clinical Summary ---
Author Organization [facility] Address [address] [place] [address] Care Team Providers Care Mail Clerk Name Role Phone Unavailable Primary Care [...] Adults 18 yrs or above (or HM Modifier)([facility]) 1980 Hepatitis C Virus Infection in Adolescents and Adults: Screening (or Modifier) ([facility]) 1980 SDOH Screening Reminder: Brianna gooden for all adults ([facility]) 1980 Tobacco Smoking Cessation: i n Adults excluding Women: Behavioral and Pharmacotherapy Interventions ([facility]) 1980 Lipid Screening: Every 5 yrs for Men aged 35+ (or HM Modifier) ([facility]) 1998 Colorectal Cancer Screening 45 -75 Yrs (or HM Modifier) 2007 Colorectal Cancer: FLEXIBLE SIGMOIDOSCOPY Screening every 5 yrs 2007 Colorectal Cancer: Fecal Imm unochemical Test (FIT) Annually [facility] 2007 Colorectal Cancer: High-sens itivity gFOBT Screening Annually [facility] 2007 Colorectal Cancer: Stool Col oguard Screening every 3 yrs 2007 Colorectal Cancer:CT Colonog rosemary Screening every 5 yrs 2007 Pneumococcal Vaccination Scr eening: Patients 50+ yrs of age ([facility]) (1 of 1 - PCV) 2012 Zoster/Shingles Vaccine Seri es Screening: Adults aged 18+ yrs (or HM Modifiers)([facility]) (1 of 2) 2012 COVID-19 Vaccine Screening: Initial Series and Booster Status ([facility]) ( - 2023-25 season) 2024 Flu Vaccination: Yearly for ages 18mos through 64 years (or Modifier)([facility] ) 03/10/2025 DTaP/Tdap/Td Vaccines ([facility]) (2 - Td or Tdap) 06/13/2026 06/13/2016, 03/06/2008 RSV Vaccines (1 - 1-dose 75+ series) 2037 Medical Devices Not on file Insurance [facility]
--- OUTSIDE RECORDS SUMMARY | 2024-12-13 13:29 | XMS_ITS | Encounter Summary ---
Author Organization [facility] Address [address] [place] [address] Care Team Providers Care Rayon Tester Name Role Phone Klaudia Mederos MD Primary Care Provider Un available Reason for Visit * Reason Onset Date Comments Medication 03/09/2018 Plaquenil Encounter Details Date Type Department Care Team Description 03/09/2018 Telephone Rheumatology - [address] [address] Bina Batista DO Medication (Plaquenil) Social History Tobacco Use Types Packs/Day Years Used Date Smoking Tobacco: Former Cigarettes 1 30 Smokeless Tobacco: Never Alcohol Use Standard Drinks/Week Comments Yes 0 (1 standard drink = 0.6 oz pur e alcohol) Sex Assigned at Date Recorded Not on file documented as of this encounter Miscellaneous Notes * Telephone Encounter - Bina Batista DO - 03/11/2018 8:13 PM EDT Ok. Sounds good. * Telephone Encounter - Vanessa Moncada M.A. - 03/11/2018 4:08 PM EDT I spoke with the pt. Pt's legs feel good. He would like to try taking the Plaquenil 100 mg on Mon, Wed, and Fri. * Telephone Encounter - Bina Batista DO - 03/09/2018 3:49 PM EDT How is he ([phone] (home) [phone] (work)) feeling on the lower dose of [id number] mg? Any changes with pain in the legs? If he feels ok, we can change it to half tabs on M, W, and F. Or if he wants to try stopping it, we can try that also. documented in this encounter Plan of Treatment Not on file documented as of this encounter Visit Diagnoses Not on filedocumented in this encounter Care Teams Rayon Tester Relationship Specialty Start Date End Date Klaudia Mederos MD PCP - General Internal Medicine 04/28/17 documented as of this encounter
--- OUTSIDE RECORDS SUMMARY | 2024-12-13 13:29 | XMS_ITS | Encounter Summary ---
Author Organization [facility] Address [address] [place] [address] Care Team Providers Care Senior Windows Systems Engineer Name Role Phone Klaudia Mederos MD Primary Care Provider Un available Encounter Details Date Type Department Care Team Description 06/02/2017 Orders Only Adult Medicine [address] [address] Klaudia Mederos MD Social History Tobacco Use Types Packs/Day Years Used Date Smoking Tobacco: Every Day Cigarettes 0.5 30 Smokeless Tobacco: Never Comments:14 cigs daily Alcohol Use Standard Drinks/Week Comments Yes 0 (1 standard drink = 0.6 oz pur e alcohol) Sex Assigned at Date Recorded Not on file documented as of this encounter Plan of Treatment Not on file documented as of this encounter Visit Diagnoses Not on filedocumented in this encounter Care Teams Senior Windows Systems Engineer Relationship Specialty Start Date End Date Klaudia Mederos MD PCP - General Internal Medicine 04/28/17 documented as of this encounter
--- OUTSIDE RECORDS SUMMARY | 2024-12-13 13:29 | XMS_ITS | Encounter Summary ---
Author Organization [facility] Address [address] [place] [address] Care Team Providers Care Lawyers Name Role Phone Klaudia Mederos MD Primary Care Provider Un available Encounter Details Date Type Department Care Team Description 06/14/2019 Release of Information Medical Records [address] [place] [id number] Abstract, Provider Social History Tobacco Use Types [...] on filedocumented in this encounter Care Teams Lawyers Relationship Specialty Start Date End Date Klaudia Mederos MD PCP - General Internal Medicine 04/28/17 documented as of this encounter
--- OUTSIDE RECORDS SUMMARY | 2024-12-13 13:29 | XMS_ITS | Encounter Summary ---
Author Organization [facility] Address [address] [place] [address] Care Team Providers Care Supervisor Public Health Nursing Name Role Phone Klaudia Mederos MD Primary Care Provider Un available Encounter Details Date Type Department Care Team Description 10/05/2019 Transfer Records Medical Records [address] [place] [address] Abstract, Provider Social History Tobacco Use Types [...] on filedocumented in this encounter Care Teams Supervisor Public Health Nursing Relationship Specialty Start Date End Date Klaudia Mederos MD PCP - General Internal Medicine 04/28/17 documented as of this encounter
--- OUTSIDE RECORDS SUMMARY | 2024-12-13 13:29 | XMS_ITS | Clinical Summary ---
Author Organization [facility] Address [address] [place] [address] Care Team Providers Care Sand Blaster Name Role Phone Klaudia Mederos MD Primary Care Provider Un available Medications Medication Sig Dispensed Refills Start Date End Date Status levothyroxine 125 MCG tablet Take 125 mcg by mouth daily. 0 Active Cholecalciferol (VITAMIN D OR) Take 1,000 Units by mouth. 0 Active Coenzyme Q10 (CO Q 10) 100 MG CapIndications:Rheumat oid arthritis involving multiple sites with positive rheumatoid factor (HCC) Take by mouth daily. 0 Active simvastatin (ZOCOR) 40 MG tablet TAKE 1 TABLET BY MOUTH AT BEDTIME 30 Tab 0 06/14/2018 Active hydroxychloroquine (PLAQUENIL) 200 MG tabletIndications:Rheu matoid arthritis involving multiple sites with positive rheumatoid factor (HCC) Take 1 Tab by mouth every other day. 60 Tab 2 02/08/2019 Active topiramate (TOPAMAX) 25 MG tablet 20 mg daily. 0 01/14/2019 Active celecoxib (CELEBREX) 200 MG capsuleIndications:Rhe umatoid arthritis involving multiple sites with positive rheumatoid factor (HCC) Take 1 Cap by mouth 2 times daily. 60 Cap 5 03/29/2019 Active Active Problems Problem Noted Date History of lumbar laminectomy 03/29/2019 Tobacco use disorder 06/22/2017 Rheumatoid arthritis 02/24/2017 Overview: Onset ~ 2011Sero positive Some treatment with minocycline and sulfasalazine- apparently a good response and drugs were stopped in 2014. Enbrel 03/26-08/27: Symptoms improved after he had stopped the Enbrel for a sinus infection. Hydroxychloroquine started 09/27. Dose reduced to 200 mg 3 times a week due to muscle cramping. Eye exam OK 12/26 Hypothyroid 02/24/2017 Overview: Thyrotoxic nodule on R, Rx'd radioactive iodine [place], then S/p right thyroid lobectomy 2007 Pure hypercholesterolemia 02/24/2017 ROSE MARY (obstructive sleep apnea) 02/24/2017 DJD (degenerative joint disease) of knee 02/24/2017 Vitamin D deficiency 02/24/2017 ETD (eustachian tube dysfunction) 2016 Raccoon bite 02/08/2008 Overview: Rabies vaccine 03/06/2008, [facility] [place] S/P radioactive iodine thyroid ablation Resolved Problems Problem Noted Date Resolved Date Thyroid nodule 02/24/2017 02/24/2017 Overview: Right thyroid lobectomy 10/18/2007 Immunizations Name Administration Dates Next Due Dt 03/06/2008 Influenza Vaccine-quadrivalent 4 Years Plus 04/11 Rabies-Vaccine IM 03/06/2008 Tdap (Adacel) 06/13/2016 Family History Medical History Relation Name Comments Rheumatoid Arthritis Aunt materna l Arthritis Brother 1 CA of colon arrythmia Brother 2 Sleep Apnea Father ROSE MARY, blood clot s Rheumatoid Arthritis Mother Arthritis Sister Relation Name Status Comments Aunt Alive Brother 1 Alive Brother 2 Father Mother Sister Alive Social History Tobacco Use Types Packs/Day Years Used Date Smoking Tobacco: Every Day Cigars Smokeless Tobacco: Never Tobacco Cessation:Counseling Given: Yes Alcohol Use Standard Drinks/Week Comments Yes 0 (1 standard drink = 0.6 oz pur e alcohol) Sex Assigned at Date Recorded Not on file Last Filed Vital Signs Vital Sign Reading Time Taken Comments Blood Pressure 128/76 08/31/2019 8:17 AM EST Pulse 88 08/31/2019 8:17 AM EST Temperature 36.7 ??C (98.1 ??F) 10/19/2017 12:57 PM E DT Respiratory Rate 16 08/31/2019 8:17 AM EST Oxygen Saturation 99% 02/25/2017 2:51 PM EDT Inhaled Oxygen Concentration - - Weight 108.9 kg (240 lb) 08/31/2019 8:17 AM EST Height 167.6 cm (5' 6 ) 08/31/2019 8:17 AM EST Body Mass Index 38.74 08/31/2019 8:17 AM EST Plan of Treatment Health Maintenance Due Date Last Done Comments Covid-19 Vaccine (#1) 01/16/1961 COLON CANCER SCREENING 2012 SHINGLES VACCINE (1 of 2) 2012 Lung Cancer Screening (Low Dose CT) 2017 BASELINE HEALTH EXAM 40-64 06/13/201806/13 (External Completion) CHOLESTEROL SCREENING 01/08/2023 01/08/2018 , 06/01/2017, 06/13/2016 (External Completion) BMI CHECK/ADVISE 08/10/2024 03/29/2019, 01/2019, 10/19/2017 INFLUENZA (Season Ended) 2025 05/05/2017 DTAP/TDAP/TD (2 - Td or Tdap) 06/13/2026 (External Completion), 06/13/2016 PNEUMOCOCCAL VACCINE FOR HIG H RISK PATIENTS (#1) 2027 HEPATITIS C SCREENING Completed 02/25/2017 , 04/18/2015 (External Completion) Care Teams Sand Blaster Relationship Specialty Start Date End Date Klaudia Mederos MD PCP - General Internal Medicine 04/28/17
== END 2024-12-13 12:56 | disposition home or self-care (01) ==
LOC: HO.RHES 11:54
PROVIDERS: PCP Internal Medicine Rheumatology; Visit Provider Internal Medicine Rheumatology
DX: M17.11 Unilateral primary osteoarthritis, right knee (principal); R74.01 Elevation of levels of liver transaminase levels
CPT/HCPCS: 20610; 99213

== ENCOUNTER → 2024-12-13 11:53 | Outpatient (BNVA) | payer OTHER, SELFPAY | PROVIDERS: PCP Internal Medicine Rheumatology; Visit Provider Internal Medicine Rheumatology | DX: M17.11 Unilateral primary osteoarthritis, right knee (principal); R74.01 Elevation of levels of liver transaminase levels | CPT/HCPCS: 20610; J2003; J3300 ==

== ENCOUNTER 2025-03-09 10:00 | Outpatient (AMB) | payer OTHER, SELFPAY ==
--- OUTSIDE RECORDS SUMMARY | 2025-03-04 23:59 | XMS_ITS | Continuity of Care Document ---
Author Organization [facility] Address [address] [address]- Care Team Providers Care Business Objects Analyst Name Role Phone Dewayne Bowie MD Primary Care Physician Encounter [facility] [place] Date(s): 02/02/25 - 03/04/25 [facility] [address] [place] [id number] Encounter Type: Triage Allergies, Adverse Reactions, Alerts No Known Allergies Immunizations Given and Recorded Vaccine Date Status Refusal Reason [id number] 12y+ bivalent booster vax 07/28/22 Recorded SARS-CoV-2 (COVID-19) mRNA-1273 vaccine 12/21/21 R ecorded SARS-CoV-2 (COVID-19) mRNA-1273 vaccine 06/20/21 R ecorded SARS-CoV-2 (COVID-19) mRNA-1273 vaccine 11/15/20 R ecorded SARS-CoV-2 (COVID-19) mRNA-1273 vaccine 11/2020 R ecorded SARS-CoV-2 (COVID-19) mRNA-1273 vaccine 10/19/20 R ecorded SARS-CoV-2 (COVID-19) mRNA-1273 vaccine 10/2020 R ecorded influenza virus vaccine, inactivated 1 07/18/20 Gi alfredo Influenza Virus Vaccine (oldterm) 06/13/19 Recorde d Afluria (oldterm) 06/13/16 Given Adacel (Tdap) (oldterm) 06/13/16 Given tetanus/diphtheria/pertussis, acel(Tdap) 06/13/16 Recorded Rabies Vacc (oldterm) 2 03/06/08 Given Diphth-Tetanus Toxoids Adsorbed(oldterm) 03/06/08 Given 1Result Comment: [facility] [id number] 2Admin Note: Rabies immune globulin 6 cc injected into wound, 3cc IM LB/RB Total RIG dose 12cc Medications albuterol CFC free 90 mcg/inh inhalation aerosol 2, puffs, Inhalation, 4 times a day, PRN, # 8.5 Gm, Refills 0, Tot. Refills 0, Maintenance, 10/30/2410:48:00 AM EDT, Aerosol, Route to Pharmacy Electronically, [id number], [facility]/pharmacy #[id number], 168, cm, 10/31/23 11:20:00 EDT, Height, 113.1, kg, 08/22/22 7:39:00 EST, Dry Weight Start Date: 10/31/23 Status: Ordered Quantity: 8.5 Unit: g Repeat number: 1 Indications: Bronchopneumonia, unspecified organism; Emphysema, unspecified; aspirin 81 mg oral capsule 1 capsule = 81 mg, By Mouth, Daily, # 90 capsule, 0 Refills, Maintenance, 01/12/25 9:48:00 AM EDT, Partial fill upon patient request if the prescription is for a schedule II opioid drug. Start Date: 01/12/25 Stop Date: 04/12/25 Status: Ordered Quantity: 90.0 Unit: capsule Repeat number: 1 atorvastatin 40 mg oral tablet 1 tablet = 40 mg, By Mouth, Daily, # 90 tablet, 3 Refills, Maintenance, 01/11/25 11:55:00 AM EDT, Tablet, [facility]/pharmacy #[id number], Partial fill upon patient request if the prescription is for a schedule II opioid drug., 168, cm, 01/11/25 10:21:00 EDT, Height, 114.3, kg, 08/30/24 8:42:00 EST, Dry Weight Start Date: 01/11/25 Status: Ordered Quantity: 90.0 Unit: tablet Repeat number: 4 calcium (as carbonate and lactate)-vitamin D 200 mg-250 intl units oral tablet, chewable 2 tablet, By Mouth, 2 times a day, 0 Refills, Maintenance, 11/05/22 9:54:00 AM EDT, Partial fill upon patient request if the prescription is for a schedule II opioid drug. Start Date: 11/05/22 Status: Ordered Repeat number: 1 CeleBREX 100 mg oral capsule 1 capsule = 100 mg, By Mouth, 2 times a day, # 60 capsule, 0 Refills, Maintenance, 08/30/24 8:42:00 AM EST, Capsule, Partial fill upon patient request if the prescription is for a schedule II opioid drug. Start Date: 08/30/24 Status: Ordered Quantity: 60.0 Unit: capsule Repeat number: 1 Durable Medical Equipment Maintenance, AutoCPAP 10-14 [facility], 04/14/19 1:15:27 PM EDT, Compound Start Date: 04/14/19 Status: Ordered Repeat number: 1 Hydroxychloroquine By Mouth, Daily, Maintenance, 10/16/21 12:49:00 PM EST, Partial fill upon patient request if the prescription is for a schedule II opioid drug. Start Date: 10/16/21 Status: Ordered Repeat number: 1 levothyroxine 125 mcg (0.125 mg) oral tablet 1 tablet = 125 mcg, By Mouth, Daily, # 90 tablet, 1 Refills, Maintenance, 12/28/24 9:20:00 AM EDT, Tablet, [facility]/pharmacy #[id number], Partial fill upon patient request if the prescription is for a schedule II opioid drug., 168, cm, 08/30/24 8:42:00 EST, Height, 114.3, kg, 08/30/24 8:42:00 EST, Dry Weight Start Date: 12/28/24 Status: Ordered Quantity: 90.0 Unit: tablet Repeat number: 2 oxyCODONE 5 mg oral tablet 5 mg, 1, tablet, By Mouth, Every 4 hours, every 4-6 hours as needed, Refills 0, Tot. Refills 0, Maintenance, 08/22/22 7:00:00 AM EST, Partial fill upon patient request if the prescription is for a schedule II opioid drug. Start Date: 08/22/22 Status: Ordered Repeat number: 1 simvastatin 40 mg oral tablet 40 mg, 1, tablet, By Mouth, Daily at bedtime, # 90 tablet, Refills 3, Tot. Refills 3, Maintenance, 07/12/24 9:17:00 AM EST, Route to Pharmacy Electronically, [facility]/pharmacy #[id number], Partial fill upon patient request if the prescription is for a schedule II opioid drug., 168, cm, 07/12/24 8:50:00 EST, Height, 113.1, kg, 08/22/22 7:39:00 EST, Dry Weight Start Date: 07/12/24 Status: Ordered Quantity: 90.0 Unit: tablet Repeat number: 4 Tadalafil (Eqv-Cialis) 20 mg oral tablet 1 tablet = 20 mg, By Mouth, Daily, # 30 tablet, 5 Refills, Maintenance, 12/31/23 3:13:00 PM EDT, [facility]/pharmacy #[id number], Partial fill upon patient request if the prescription is for a schedule II opioid drug., 168, cm, 12/31/23 14:23:00 EDT, Height, 113.1, kg, 08/22/22 7:39:00 EST, Dry Weight Start Date: 12/31/23 Status: Ordered Quantity: 30.0 Unit: tablet Repeat number: 6 Tylenol Extra Strength 500 mg oral tablet 2 tablet = 1,000 mg, By Mouth, Every 8 hours, 0 Refills, Maintenance, 08/22/22 7:00:00 AM EST, Partial fill upon patient request if the prescription is for a schedule II opioid drug. Start Date: 08/22/22 Status: Ordered Repeat number: 1 Problem List Condition Confirmation Course Effective Dates [...] Active Social History Social History Type Response Smoking Status Former smoker, quit more than 30 days ago; Stopped at age: 61; Other: Stopped smoking cigaretes in 2021, smoked cigars, for about 2-3 years. Use to smoke one pack a day; Started at age: 19; entered on: 01/11/25 Sex Sex Representation Male (finding) Patient Care team information Care Team Personnel Name: Dewayne Bowie MD Position: [facility] Physician - Primary Care Member Role: PCP Address: [address] [place] [address] Telecom: Care Team Related Persons Name: CARLOS MIRANDA Insurance Providers Guarantor name: CANDICE MIRANDA Health Plan Information #: 1 Payer: [facility] [employer] Payer Identifier: MARIAM Member Number: [id number] Group Number: [id number] Subscriber Identifier: [id number] Relationship to Subscriber: spouse Coverage Type: Commercial Indemnity Coverage Verification Date: NA Telecom: NA Address:
--- NOTE | 2025-03-09 10:01 | A.OFFVIS_ITS ---
Vital Signs 03/09/25 10:03 Height 5 ft 6 in Weight 251 lb 2 oz BMI 40.5 BP 110/70 Blood Pressure Location Lt brachial Position Sitting Pulse 79 Pulse Source Pulse Oximeter Pulse Oximetry (%) 97 Oxygen Delivery Method Room Air Intake Visit Reasons: 3 months Intake Note: PT PRESENTS TODAY FOR A RIGHT KNEE INJECTION Allergies No Known Allergies Allergy (Verified 03/09/25 10:02) HPI HPI 3 months: Details: Right knee pain started few weeks ago. He has been using diclofenac gel and celebrex. [facility] Medical History Deviated septum Right shoulder injury Surgical History H/O shoulder surgery History of back surgery H/O hernia repair Family History Brother Colon cancer Social History Alcohol intake: current Alcohol intake frequency: a few times a week Alcohol type: beer Patient Tobacco Use Status: Former Tobacco user Physical Exam Vital Signs: Last Vital Signs Pulse 79 03/09/25 10:03 BP 110/70 03/09/25 10:03 Pulse Ox 97 03/09/25 10:03 Oxygen Delivery Method Room Air 03/09/25 10:03 BMI result Body Mass Index 40.5 Const Other: General: Comfortable CVS: RRR Respiratory: clear to auscultation bilaterally. Good respiratory effort Skin: No lesions seen MSK: Right lateral knee joint line tenderness. No effusion. No synovitis. Good range of motion of upper extremities. Limited full external rotation of hips and flexion of knees 90 degrees. Office Procedures AMB Joint Injection/Aspiration Joint Injection/Aspiration Details: Right knee joint Prep: site was prepped using aseptic technique Injected: 40 mg of, Kenalog, with 1 mL of and 1% plain lidocaine Procedure: Informed verbal consent was obtained. The patient tolerated the procedure well. Postprocedure protocol was discussed with patient. Coding 40139 - Large joint Procedure code (CPT) selection complete Office Meds lidocaine (PF) 10 mg/mL (1 %) injection solution Performing Provider: Ricky Garcia MD Performing Location: [facility] Administered by: Ricky Garcia MD on 03/09/25 10:34 Dose Route Admin Location Dispensed Lot Number Expiration Date [facility] Tourist Information Officer 10 mg Infiltration 2 mL [id number] 01/03/26 89197-208-27 [employer] Total Dispensed Waste 2 mL 50 % Kenalog 40 mg/mL suspension for injection Performing Provider: Ricky Garcia MD Performing Location: [facility] Administered by: Ricky Garcia MD on 03/09/25 10:34 Dose Route Admin Location Dispensed Lot Number Expiration Date [facility] Tourist Information Officer 40 mg intra-articular 1 mL [id number] 07/09/26 1091-9975-21 [facility] [employer] Total Dispensed Waste 1 mL 0 % Assessment & Plan Assessment & Plan (1) Rheumatoid arthritis: Comment: In remission on hydroxychloroquine. Rheumatology history: History of rheumatoid arthritis diagnosed in . Seropositive RF 81.5. 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 He remains on remission on hydroxychloroquine restarted 09/2021 Code(s): M06.9 - Rheumatoid arthritis, unspecified Category: Medical Qualifiers: Rheumatoid arthritis location: multiple sites Rheumatoid factor presence: unspecified presence Qualified Code(s): M06.9 - Rheumatoid arthritis, unspecified Plan: Continue hydroxychloroquine 400 mg daily. 01/2024 eye exam okay. Requesting last eye exam Labs for drug monitoring on high-risk medication due today Return to clinic in 3 months (2) Other terminal clerk (current) drug therapy: Code(s): Z79.899 - Other terminal clerk (current) drug therapy Category: Medical Plan: See above (3) Osteoarthritis of right knee: Comment: Uncontrolled pain with current regimen. Recurrent. X-ray right knee reveals moderate osteoarthritis. Code(s): M17.11 - Unilateral primary osteoarthritis, right knee Category: Medical Qualifiers: Osteoarthritis type: primary Qualified Code(s): M17.11 - Unilateral primary osteoarthritis, right knee Plan: Patient received right knee cortisone injection this visit Continue Celebrex 200 mg daily. If he gets recurrent knee pain prior to next appointment, I will ask him to increase Celebrex to 200 mg twice a day Return to clinic in 3-4 months. He will call office after 3 months for urgent appointment cortisone injection if needed (4) Transaminitis: Comment: He drinks occasional alcohol Code(s): R74.01 - Elevation of levels of liver transaminase levels Category: Medical Plan: Rechecking LFTs this visit Orders: Orders Complete Blood Count Auto Diff 03/09/25 Z79.899 - Other terminal clerk (current) drug therapy Alanine Aminotransferase 03/09/25 Z79.899 - Other terminal clerk (current) drug therapy Creatinine 03/09/25 Z79.899 - Other terminal clerk (current) drug therapy Erythrocyte Sedimentation Rate 03/09/25 Z79.899 - Other terminal clerk (current) drug therapy AMB Joint Injection/Aspiration 03/09/25 M17.11 - Unilateral primary o steoarthritis, right knee Aspartate Amino Transferase 03/09/25 Z79.899 - Other terminal clerk (current) drug therapy C Reactive Protein 03/09/25 Z79.899 - Other terminal clerk (current) drug therapy Coding Level of Care Code Est Pt Level 4 (19124) Complex EM visit Add On G2211 Diagnoses Rheumatoid arthritis involving multiple sites, unspecified whether rheumatoid factor present M06.9 Rheumatoid arthritis location: multiple sites Rheumatoid factor presence: unspecified presence Other [facility] (current) drug therapy Z79.899 Primary osteoarthritis of right knee M17.11 Osteoarthritis type: primary Transaminitis R74.01 CPT Codes Coding - 41563 Large joint: 37912 - Large joint ([id number])
[2025-03-09 10:03] VITALS: BP 110/70; PULSE 79; O2SAT 97; BMI 40.5
--- OUTSIDE RECORDS SUMMARY | 2025-03-09 10:44 | XMS_ITS | Clinical Summary ---
Author Organization [facility] Address [address] [place] [address] Care Team Providers Care Dumpster Driver Name Role Phone Unavailable Primary Care Provider [...] (Shingrix) (1 of 2) 2012 COVID-19 Vaccine (1 - 2023-2 5 season) 2024 Influenza (#1) 2025 RSV (1 - 1-dose 75+ series) 2037 HPV Vaccine (No Doses Required) Completed Hep A Aged Out No longer eligi [...]
== END 2025-03-09 10:31 | disposition home or self-care (01) ==
LOC: HO.RHES 10:02
PROVIDERS: PCP Internal Medicine Rheumatology; Visit Provider Internal Medicine Rheumatology
DX: M17.11 Unilateral primary osteoarthritis, right knee (principal)
CPT/HCPCS: 20610

== ENCOUNTER 2025-03-09 10:00 | Outpatient (REF) | payer OTHER, SELFPAY ==
--- OUTSIDE RECORDS SUMMARY | 2025-03-09 11:17 | XMS_ITS | Clinical Summary ---
Author Organization [facility] [employer] [facility] Address [address] [facility] [place] [address] Care Team Providers Care Manager Medicare Name Role Phone Unavailable Primary Care Provider [...] Adults 18 yrs or above (or HM Modifier)([facility]) 1980 Hepatitis C Virus Infection in Adolescents and Adults: Screening (or Modifier) ([facility]) 1980 SDMS Screening Reminder: Brianna gooden for all adults ([facility]) 1980 Tobacco Smoking Cessation: i n Adults excluding Women: Behavioral and Pharmacotherapy Interventions ([facility]) 1980 Colorectal Cancer Screening 45 -75 Yrs (or HM Modifier) 2007 Colorectal Cancer: FLEXIBLE SIGMOIDOSCOPY Screening every 5 yrs 2007 Colorectal Cancer: Fecal Imm unochemical Test (FIT) Annually [facility] 2007 Colorectal Cancer: High-sens itivity gFOBT Screening Annually [facility] 2007 Colorectal Cancer: Stool Col oguard Screening every 3 yrs 2007 Colorectal Cancer:CT Colonog rosemary Screening every 5 yrs 2007 Pneumococcal Vaccination Scr eening: Patients 50+ yrs of age ([facility]) (1 of 1 - PCV) 2012 Zoster/Shingles Vaccine Seri es Screening: Adults aged 18+ yrs (or HM Modifiers)([facility]) (1 of 2) 2012 COVID-19 Vaccine Screening: Initial Series and Booster Status ([facility]) ( - 2023-25 season) 2024 Flu Vaccination: Yearly for ages 18mos through 64 years (or Modifier)([facility]) 03/10/2025 DTaP/Tdap/Td Vaccines ([facility]S) (2 - Td or Tdap) 06/13/2026 06/13/2016, 03/06/2008 RSV Vaccines (1 - 1-dose 75+ series) 2037 Medical Devices Not on file Insurance [facility]
[2025-03-09 13:14] LABS: MANUAL DIFF FLAG NO
[2025-03-09 13:20] LABS: Hematocrit 44.4 % (42.0-52.0); Hemoglobin 15.2 g/dl (14.0-18.0); Imm Gran Abs Auto 0.05 X10*3/uL (0.00-0.03); Imm Gran Pct Auto 0.7 % (0.0-0.4); Lymphocytes Absolute Auto 1.3 X10*3/uL (1.2-4.9); Mean Corpuscular HGB Conc 34.2 g/dl (31.0-36.0); Mean Corpuscular Hemoglobin 30.3 pg (27.0-33.0); Mean Corpuscular Volume 88.4 fL (80.0-98.0); NRBC Abs Auto 0.000 X10*3/uL (0.0-0.012); NRBC Pct Auto 0.0 /100WBC (0.0-0.2); Platelet Count 230 X10*3/uL (160-400); Red Blood Count 5.02 X10*6/uL (4.60-5.80); White Blood Count 7.6 X10*3/uL (4.8-10.8)
[2025-03-09 13:45] LABS: Alanine Aminotransferase 44 U/L (0-40); Albumin Level 4.3 g/dL (3.5-5.0); Alkaline Phosphatase 145 U/L (39-117); Aspartate Amino Transferase 29 U/L (5-37); Estimated Glomerular Filt Rate > 60; Total Protein 6.7 g/dL (6.5-8.0)
== END 2025-03-09 10:01 | disposition home or self-care (01) ==
LOC: HO.HKASLDS 10:00
PROVIDERS: Visit Provider Internal Medicine Rheumatology
DX: M17.11 Unilateral primary osteoarthritis, right knee (principal); M06.9 Rheumatoid arthritis, unspecified; R74.01 Elevation of levels of liver transaminase levels; Z79.1 Long term (current) use of non-steroidal anti-inflammatories (NSAID); Z79.899 Other long term (current) drug therapy
CPT/HCPCS: 20610; 36415; 80076; 82565; 85025; 85652; 86140; J2003; J3300

== ENCOUNTER 2025-06-27 10:04 | Outpatient (REF) | payer OTHER, SELFPAY ==
[2025-06-27 13:50] LABS: MANUAL DIFF FLAG NO
[2025-06-27 14:10] LABS: Alanine Aminotransferase 35 U/L (0-40); Aspartate Amino Transferase 28 U/L (5-37); Estimated Glomerular Filt Rate > 60
[2025-06-27 14:28] LABS: Hematocrit 43.7 % (42.0-52.0); Hemoglobin 14.7 g/dl (14.0-18.0); Imm Gran Abs Auto 0.07 X10*3/uL (0.00-0.03); Imm Gran Pct Auto 0.8 % (0.0-0.4); Lymphocytes Absolute Auto 1.4 X10*3/uL (1.2-4.9); Mean Corpuscular HGB Conc 33.6 g/dl (31.0-36.0); Mean Corpuscular Hemoglobin 30.0 pg (27.0-33.0); Mean Corpuscular Volume 89.2 fL (80.0-98.0); NRBC Abs Auto 0.000 X10*3/uL (0.0-0.012); NRBC Pct Auto 0.0 /100WBC (0.0-0.2); Platelet Count 274 X10*3/uL (160-400); Red Blood Count 4.90 X10*6/uL (4.60-5.80); White Blood Count 9.0 X10*3/uL (4.8-10.8)
== END 2025-06-27 10:05 | disposition home or self-care (01) ==
LOC: HO.HKASLDS 10:04
PROVIDERS: Visit Provider Internal Medicine Rheumatology
DX: M17.11 Unilateral primary osteoarthritis, right knee (principal); R74.01 Elevation of levels of liver transaminase levels; M06.9 Rheumatoid arthritis, unspecified; Z51.81 Encounter for therapeutic drug level monitoring; Z79.899 Other long term (current) drug therapy
CPT/HCPCS: 36415; 82565; 84450; 84460; 85025; 85652; 86140

== ENCOUNTER 2025-06-27 10:04 | Outpatient (AMB) | payer OTHER, SELFPAY ==
[2025-06-27 10:07] VITALS: BP 110/68; PULSE 76; O2SAT 96; BMI 40.9
--- NOTE | 2025-06-27 10:07 | A.OFFVIS_ITS ---
Vital Signs 06/27/25 10:07 Height 5 ft 6 in Weight 253 lb 8.505 oz BMI 40.9 BP 110/68 Blood Pressure Location Lt brachial Position Sitting Pulse 76 Pulse Source Pulse Oximeter Pulse Oximetry (%) 96 Oxygen Delivery Method Room Air Intake Visit Reasons: 3-4 months Intake Note: PT PRESENTS TODAY FOR A RIGHT KNEE INJECTION Welfare Officer Required: No Accompanied by: Self / Same As Patient Allergies No Known Allergies Allergy (Verified 06/27/25 10:11) HPI HPI 3-4 months: Details: Cortisone injection right knee lasted a month. He did a penny walk in April in [place] and reports that he hyperextended his right knee and then fell. He has been bracing his knee with a copper brace during the day and sometimes uses a hinged brace when he is ambulating. He has been taking Celebrex 200 mg d aily. He has a hard time walking. Rest of joints are not bothering him. Denies morning stiffness. [facility] Medical History Deviated septum Right shoulder injury Surgical History H/O shoulder surgery History of back surgery H/O hernia repair Family History Brother Colon cancer Social History Alcohol intake: current Alcohol intake frequency: a few times a week Alcohol type: beer Patient Tobacco Use Status: Former Tobacco user Physical Exam Vital Signs: Last Vital Signs Pulse 76 06/27/25 10:07 BP 110/68 06/27/25 10:07 Pulse Ox 96 06/27/25 10:07 Oxygen Delivery Method Room Air 06/27/25 10:07 BMI result Body Mass Index 40.9 Const Other: General: Comfortable CVS: RRR Respiratory: clear to auscultation bilaterally. Good respiratory effort Skin: No lesions seen MSK: Right lateral knee joint line tenderness. He also has tenderness along lateral tibial plateau. Positive Thessaly test. Negative Sadaf's test. Negative anterior and posterior drawer sign. No effusion. No synovitis. Good range of motion of upper extremities. Limited full external rotation of hips and flexion of knees 90 degrees. Assessment & Plan Assessment & Plan (1) Rheumatoid arthritis: Comment: In remission on hydroxychloroquine. Rheumatology history: History of rheumatoid arthritis diagnosed in . Seropositive RF 81.5. 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 He remains on remission on hydroxychloroquine restarted 09/2021 Code(s): M06.9 - Rheumatoid arthritis, unspecified Category: Medical Qualifiers: Rheumatoid arthritis location: multiple sites Rheumatoid factor presence: unspecified presence Qualified Code(s): M06.9 - Rheumatoid arthritis, unspecified Plan: Continue hydroxychloroquine 400 mg daily. 01/2024 eye exam without maculopathy. He had an eye exam in 2024. Requesting last eye exam. 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 Recurrent. X-ray right knee reveals moderate osteoarthritis. He failed cortisone injection. The injection prior to realize cortisone injection lasted 2-2.5 months. Right knee painwas exacerbated after April when he had an incident where he hyperextended his knee during a walk and then fell. Based on my clinical exam I am concerned that he has meniscal tear versus lateral collateral ligament strain. MRI is indicated. If MRI reveals a ligament tear, he will need orthopedic surgery evaluation. If MRI reveals osteoarthritis without significant ligament tear, then I can proceed with hyaluronic acid injection, Euflexxa, which was discussed with patient to treat osteoarthritis pain. Patient agrees with plan. Code(s): M17.11 - Unilateral primary osteoarthritis, right knee Category: Medical Qualifiers: Osteoarthritis type: primary Qualified Code(s): M17.11 - Unilateral primary osteoarthritis, right knee Plan: Increase Celebrex to 200 mg twice a day He will continue to use diclofenac gel 1% applied to affected area every 4-6 hours as needed MRI right knee ordered Continue to brace knee Return to clinic in 3 months or sooner if needed (4) Transaminitis: Comment: Mild elevation in ALT. He drinks occasional alcohol Code(s): R74.01 - Elevation of levels of liver transaminase levels Category: Medical Plan: Rechecking LFTs this visit Orders: Orders Complete Blood Count Auto Diff Today Z79.899 - Other adjunct faculty for medical terminology (current) drug therapy Erythrocyte Sedimentation Rate Today Z79.899 - Other adjunct faculty for medical terminology (current) drug therapy MR knee RT wo con Today M17.11 - Unilateral primary osteoarthritis, right knee Creatinine Today Z79.899 - Other adjunct faculty for medical terminology (current) drug therapy C Reactive Protein Today Z79.899 - Other [facility] (current) drug therapy PT Evaluation and Treatment Today M17.11 - Unilateral primary osteoarthritis, right knee Medications: Changed From celecoxib (Celebrex) 200 mg PO DAILY 30 caps 2RF To celecoxib (Celebrex) 200 mg PO BID 30 caps 5RF Coding Level of Care Code Est Pt Level 4 (55878) Complex EM visit Add On G2211 Diagnoses Rheumatoid arthritis involving multiple sites, unspecified whether rheumatoid factor present M06.9 Rheumatoid arthritis location: multiple sites Rheumatoid factor presence: unspecified presence Other [facility] (current) drug therapy Z79.899 Primary osteoarthritis of right knee M17.11 Osteoarthritis type: primary Transaminitis R74.01
== END 2025-06-27 10:48 | disposition home or self-care (01) ==
LOC: HO.RHES 10:05
PROVIDERS: Visit Provider Internal Medicine Rheumatology
DX: M06.9 Rheumatoid arthritis, unspecified (principal); Z79.899 Other long term (current) drug therapy; M17.11 Unilateral primary osteoarthritis, right knee; R74.01 Elevation of levels of liver transaminase levels
CPT/HCPCS: 99214